=== PATIENT | female | born 1975 | race Caucasian/White ===

== ENCOUNTER 2018-08-20 15:29 | Emergency (ER) | payer SELFPAY ==
[2018-08-20 17:25] VITALS: BP 123/92
--- NOTE | 2018-08-20 17:59 | ER Document Report ---
ED Medical Screen (RME) - General Chief Complaint: Dizziness Stated Complaint: COUGH, LIGHTHEADED Time Seen by Provider: 08/20/18 17:01 Mode of Arrival: Ambulatory Information source: Patient Cannot obtain history due to: Dementia - HPI Onset: Other - 43-year-old otherwise healthy female that presents for evaluation of a cough as well as sinus pressure over the last 3 weeks. She notes that she is a daily cigarette smoker but has no other known medical problems. She denies any fevers or chills, does endorse fullness in the forehead as well as the face. Presented because she has been using some DayQuil to try and "power through it" - Related Data Allergies/Adverse Reactions: No Known Allergies Allergy (Verified 08/20/18 15:31) Past Medical History - General Information source: Patient - Social History Chew tobacco use (# tins/day): No Frequency of alcohol use: Social Drug Abuse: None Renal/ Medical History: Denies: Hx Peritoneal Dialysis Review of Systems - Review of Systems -: Yes All other systems reviewed and negative Physical Exam - Vital signs Vitals: Temp Pulse Resp BP Pulse Ox 98.6 F 94 14 112/72 99 08/20/18 15:34 08/20/18 15:34 08/20/18 15:34 08/20/18 15:34 08/20/18 15:34 Interpretation: Normal - General General appearance: Appears well, Alert - HEENT Head: Normocephalic, Atraumatic Eyes: Normal Pupils: PERRL - Respiratory Respiratory status: No respiratory distress Chest status: Nontender Breath sounds: Normal Chest palpation: Normal - Cardiovascular Rhythm: Regular Heart sounds: Normal auscultation Murmur: No - Abdominal Inspection: Normal Distension: No distension Bowel sounds: Normal Tenderness: Nontender Organomegaly: No organomegaly - Back Back: Normal, Nontender - Extremities General upper extremity: Normal inspection, Nontender, Normal color, Normal ROM, Normal temperature General lower extremity: Normal inspection, Nontender, Normal color, Normal ROM, Normal temperature, Normal weight bearing. No: Robina's sign - Neurological Neuro grossly intact: Yes Cognition: Normal Orientation: AAOx4 Clair Coma Scale Eye Opening: Spontaneous Fowler Coma Scale Verbal: Oriented Clair Coma Scale Motor: Obeys Commands Fowler Coma Scale Total: 15 Speech: Normal Motor strength normal: LUE, RUE, LLE, RLE Sensory: Normal - Psychological Associated symptoms: Normal affect, Normal mood - Skin Skin Temperature: Warm Skin Moisture: Dry Skin Color: Normal Course - Re-evaluation Re-evalutation: 43-year-old female presents with signs and symptoms suggestive of sinusitis. On examination she is well-appearing overall her lungs are very clear. She is tender to percussion in the face over the maxillary and frontal sinuses. She does not demonstrate any other symptoms suggestive more serious underlying process at this time such as pneumonia, asthma, COPD. We will plan for symptomatic treatment as she has had symptoms greater than 2 weeks she does qualify for presumed treatment of sinusitis for an underlying bacterial cause we will treat with an antibiotic did discuss with her that this is unlikely to improve her symptoms. She was also instructed to utilize anti-inflammatories. - Vital Signs Vital signs: Temp Pulse Resp BP Pulse Ox 98.3 F 99 18 123/92 H 96 08/20/18 17:24 08/20/18 17:24 08/20/18 17:24 08/20/18 17:24 08/20/18 17:24 Doctor's Discharge - Discharge Clinical Impression: Cough Sinusitis Qualifiers: Sinusitis location: unspecified location Chronicity: unspecified Qualified Code(s): J32.9 - Chronic sinusitis, unspecified Condition: Good Disposition: HOME, SELF-CARE Instructions: Sinusitis ([facility]) Additional Instructions: Your seen today in the emergency department for your sinus infection. You Had evaluation including a physical exam. You will be given an antibiotic for your sinusitis. You have been given a cough medicine to try and help with this as well. You should use decongestants such as Sudafed to try and help as well as nasal sprays. Return for any worsening fevers, chills, or other symptoms. Otherwise schedule point with your primary doctor in the coming week to help with this. You should also stop smoking today. Prescriptions: Benzonatate [Tessalon Perle 100 mg Capsule] 100 mg PO Q8HP PRN #40 cap PRN Reason: Amoxicillin 1 tab PO TID #30 tab Oxymetazoline HCl [Afrin 0.05% Nasal [place] 15 ml Bottle] 1 spray NASL ASDIR PRN #1 bottle PRN Reason: Forms: Return to Work, Smoking Cessation Education
== END 2018-08-20 18:00 | disposition home or self-care (01) ==
LOC: ER 15:29
DX: R05 Cough (principal); J32.9 Chronic sinusitis, unspecified; R42 Dizziness and giddiness; F03.90 Unspecified dementia, unspecified severity, without behavioral disturbance, psychotic disturbance, mood disturbance, and anxiety; F17.210 Nicotine dependence, cigarettes, uncomplicated
CPT/HCPCS: 99283

== ENCOUNTER 2019-01-15 02:07 | Emergency (ER) | payer OTHER ==
[2019-01-15] MEDS ORDERED: MORPHINE SULFATE 10 MG/ML INJ IM ONE (02:32)
--- NOTE | 2019-01-15 03:03 | RADIOLOGY REPORT (SQ) ---
EXAM: X-ray hand two views CLINICAL DATA: 43-year-old female status post fall with deformity to left wrist and hand TECHNICAL DATA: Two x-ray views of the left hand were performed on 01/15/2019 at 2:44 AM. A lateral view was not obtained due to significant pain. COMPARISONS: None FINDINGS: There is a comminuted minimally displaced transverse fracture through the distal left radial metaphysis with questionable intra-articular extension. There is also a mildly displaced fracture through the ulnar styloid. The radiocarpal joint is intact. There is no significant arthritis or degenerative change. Bone mineralization is normal. There are no focal lytic or sclerotic bone lesions. There is soft tissue swelling surrounding the left wrist. IMPRESSION: 1. Comminuted, minimally displaced transverse fracture through the distal left radial metaphysis with questionable intra-articular extension. 2. Mildly displaced fracture through the ulnar styloid. 3. Soft tissue swelling surrounding the left wrist.
--- NOTE | 2019-01-15 03:06 | RADIOLOGY REPORT (SQ) ---
EXAM: X-ray wrist three or more views CLINICAL DATA: 43-year-old female status post fall with left wrist pain TECHNICAL DATA: Three x-ray views of the left wrist were performed on 01/15/2019 at 2:41 AM. COMPARISONS: None FINDINGS: There is a comminuted mildly displaced transverse fracture through the distal left radial metaphysis with intra-articular extension. There is slight volar apex angulation of the fracture fragments. There is also a mildly displaced fracture through the base of the ulnar styloid. There is no evidence of arthritis or degenerative change. There are no focal lytic or sclerotic bone lesions. Bone mineralization is normal. There is diffuse soft tissue swelling surrounding the left wrist. IMPRESSION: 1. Comminuted, mildly displaced transverse fracture through the distal left radial metaphysis with intra-articular extension and slight volar apex angulation of the fracture fragments with surrounding soft tissue swelling. 2. Mildly displaced fracture through the base of the ulnar styloid.
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
[2019-01-15] MEDS ORDERED: FENTANYL CITRATE INJ/PF 100 MCG/2 ML AMPUL IM ONE (03:13)
[2019-01-15 04:48] VITALS: BP 117/81
== END 2019-01-15 04:45 | disposition home or self-care (01) ==
LOC: ER 02:07
DX: S52.592A Other fractures of lower end of left radius, initial encounter for closed fracture (principal); S52.612A Displaced fracture of left ulna styloid process, initial encounter for closed fracture; Y08.89XA Assault by other specified means, initial encounter; F17.200 Nicotine dependence, unspecified, uncomplicated
CPT/HCPCS: 99283; 96372; 73130; 73110; 29125; J3010; J2270

== ENCOUNTER 2019-04-17 14:09 | Emergency (ER) | payer OTHER ==
[2019-04-17] MEDS ORDERED: ACETAMINOPHEN 325 MG TABLET PO ONE (14:16)
[2019-04-17] MEDS ORDERED: DIPH/PERTUSS(ACELL)/TETANUS VAC/PF 0.5 ML SYR (>=10YO) IM ONE (14:16)
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
[2019-04-17 14:29] VITALS: BP 135/88
--- NOTE | 2019-04-17 14:47 | RADIOLOGY REPORT (SQ) ---
EXAM DESCRIPTION: CT HEAD WITHOUT COMPLETED DATE/TIME: 04/17/2019 2:38 pm REASON FOR STUDY: head injury, feels speech is off COMPARISON: None. TECHNIQUE: Axial images acquired through the brain without intravenous contrast. Images reviewed wi th bone, brain and subdural windows. Additional sagittal and coronal reconstructions were generated. Images stored on PACS. All CT scanners at this facility use dose modulation, iterative reconstruction, and/or weight based d osing when appropriate to reduce radiation dose to as low as reasonably achievable (ALARA). [facility]: Dose Right [facility]: CareDose [facility]: Dose Right [facility]: Teradose 4D [facility]: Smart Ener1 RADIATION DOSE: CT Rad equipment meets quality standard of care and radiation dose reduction techniq ues were employed. CTDIvol: 53.2 mGy. DLP: 1017 mGy-cm. mGy. LIMITATIONS: None. FINDINGS: VENTRICLES: Normal size and contour. CEREBRUM: No masses. No hemorrhage. No midline shift. No evidence for acute infarction. Normal gra y/white matter differentiation. No areas of low density in the white matter. CEREBELLUM: No masses. No hemorrhage. No alteration of density. No evidence for acute infarction. EXTRAAXIAL SPACES: No fluid collections. No masses. ORBITS AND GLOBE: No intra- or extraconal masses. Normal contour of globe without masses. CALVARIUM: No fracture. PARANASAL SINUSES: No fluid or mucosal thickening. SOFT TISSUES: No mass or hematoma. OTHER: No other significant finding. IMPRESSION: NORMAL BRAIN CT WITHOUT CONTRAST. EVIDENCE OF ACUTE STROKE: NO. COMMENT: Quality ID # [id number]: Final reports with documentation of one or more dose reduction techniques (e.g., Automated exposure control, adjustment of the mA and/or kV according to patient size, use of iterative reconstruction technique) TECHNICAL DOCUMENTATION: JOB ID: [id number] [employer]- All Rights Reserved Reading location - IP/workstation name: [email or web address]
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
== END 2019-04-17 15:05 | disposition home or self-care (01) ==
LOC: ER 14:09
DX: Z23 Encounter for immunization (principal); S09.90XA Unspecified injury of head, initial encounter; R51 Headache; W22.8XXA Striking against or struck by other objects, initial encounter; F17.200 Nicotine dependence, unspecified, uncomplicated
CPT/HCPCS: 70450; 90471; 90715; 99283

== ENCOUNTER 2019-09-19 15:27 | Emergency (ER) | payer SELFPAY ==
[2019-09-19 15:45] VITALS: BP 123/82
--- NOTE | 2019-09-19 16:01 | ER Document Report ---
ED Medical Screen (RME) - General Chief Complaint: Rash Stated Complaint: POSSIBLE RASH Time Seen by Provider: 09/19/19 15:56 Notes: Patient is a 44-year-old female who presents emergency department with a chief complaint of a rash or possible abscess to her anal area. Patient states that she was told that she could possibly have hemorrhoids and she has been using Preparation H. She is not quite sure if the drainage coming from the area is an abscess or the cream. States that she has been scratching the area. Exam: Deferred, as the patient is in triage. I have greeted and performed a rapid initial assessment of this patient. A com prehensive ED assessment and evaluation of the patient, analysis of test results and completion of medical decision making process will be conducted by an additional ED providers. TRAVEL OUTSIDE OF THE [place] IN LAST 30 DAYS: No - Related Data Allergies/Adverse Reactions: No Known Allergies Allergy (Verified 09/19/19 15:55) Past Medical History Renal/ Medical History: Denies: Hx Peritoneal Dialysis Psychiatric Medical History: Reports: Hx Depression Physical Exam - Vital signs Vitals: Temp Pulse Resp BP Pulse Ox 98.2 F 84 18 123/82 100 09/19/19 15:44 09/19/19 15:44 09/19/19 15:44 09/19/19 15:44 09/19/19 15:44 Course - Vital Signs Vital signs: Temp Pulse Resp BP Pulse Ox 98.2 F 84 18 123/82 100 09/19/19 15:44 09/19/19 15:44 09/19/19 15:44 09/19/19 15:44 09/19/19 15:44
== END 2019-09-19 17:10 | disposition left against medical advice (07) ==
LOC: ER 15:27
DX: R21 Rash and other nonspecific skin eruption (principal)
CPT/HCPCS: 99281

== ENCOUNTER 2019-12-20 14:10 | Emergency (ER) | payer SELFPAY ==
--- NOTE | 2019-12-20 14:26 | ER Document Report ---
ED Medical Screen (RME) - General Chief Complaint: Hand Pain Stated Complaint: LEFT HAND PAIN Time Seen by Provider: 12/20/19 14:25 Mode of Arrival: Ambulatory Information source: Patient Notes: 44-year-old female presented to ED for complaint of being stuck by a needle while at work. She does cleaning of houses self-employed when she was cleaning under the bed she got poked by a needle under the mattress. She does not have any insurance. She states she smokes 1/2 pack a day drinks socially does not have any past medical history. I have greeted and performed a rapid initial assessment of this patient. A comprehensive ED assessment and evaluation of the patient, analysis of test results and completion of medical decision making process will be conducted by an additional ED providers. TRAVEL OUTSIDE OF THE [place] IN LAST 30 DAYS: No - Related Data Allergies/Adverse Reactions: No Known Allergies Allergy (Verified 12/20/19 14:14) Past Medical History Renal/ Medical History: Denies: Hx Peritoneal Dialysis Psychiatric Medical History: Reports: Hx Depression
[2019-12-20 15:10] LABS: ABSOLUTE BASOPHILS # (AUTO) 0.1 10^3/uL (0.0-0.2); ABSOLUTE EOSINOPHILS # (AUTO) 0.1 10^3/uL (0.0-0.6); ABSOLUTE LYMPHOCYTES (AUTO) 2.2 10^3/uL (0.5-4.7); ABSOLUTE MONOCYTES (AUTO) 0.3 10^3/uL (0.1-1.4); ABSOLUTE NEUT (AUTO) 3.4 10^3/uL (1.7-8.2); BASOPHILS % (AUTO) 0.8 % (0-2); EOSINOPHILS % (AUTO) 1.5 % (0-6); HEMATOCRIT 37.7 % (36.0-47.0); HEMOGLOBIN 13.5 g/dL (12.0-15.5); LYMPHOCYTES % (AUTO) 36.1 % (13-45); MEAN CORPUSCULAR HEMOGLOBIN 40.4 pg (27.0-33.4); MEAN CORPUSCULAR HGB CONC 35.8 g/dL (32.0-36.0); MONOCYTES % (AUTO) 5.4 % (3-13); PLATELET COUNT 197 10^3/uL (150-450); RED BLOOD COUNT 3.35 10^6/uL (3.72-5.28); RED CELL DISTRIBUTION WIDTH 11.8 % (11.5-14.0); SEGMENTED NEUTROPHILS % (AUTO) 56.2 % (42-78); TOTAL CELLS COUNTED % (AUTO) 100 %; WHITE BLOOD COUNT 6.1 10^3/uL (4.0-10.5)
[2019-12-20 15:39] LABS: ALBUMIN 4.5 g/dL (3.5-5.0); ALKALINE PHOSPHATASE 101 U/L (38-126); ANION GAP 9 (5-19); ASPARTATE AMINO TRANSFERASE 40 U/L (14-36); BILIRUBIN,TOTAL 0.7 mg/dL (0.2-1.3); BLOOD UREA NITROGEN 12 mg/dL (7-20); CALCIUM 9.6 mg/dL (8.4-10.2); CARBON DIOXIDE 23 mmol/L (22-30); CHLORIDE 104 mmol/L (98-107); GLUCOSE 91 mg/dL (75-110); POTASSIUM 4.2 mmol/L (3.6-5.0); TOTAL PROTEIN 8.4 g/dL (6.3-8.2)
[2019-12-20 15:44] LABS: ANISOCYTOSIS SLIGHT; PLATELET COMMENT ADEQUATE
[2019-12-20 15:45] LABS: MEAN CORPUSCULAR VOLUME 113 fl (80-97)
--- NOTE | 2019-12-20 15:49 | ER Document Report ---
ED Body Fluid Exposure - General Chief Complaint: Needle Stick Exposure Stated Complaint: LEFT HAND PAIN Time Seen by Provider: 12/20/19 14:25 Mode of Arrival: Ambulatory Notes: CHIEF COMPLAINT: Needlestick injury HPI: 44-year-old female who is otherwise healthy presenting for needlestick injury to the left third finger. Patient states they were cleaning the rental house and she went to took the sheets and onto the bed and something stabbed her in the tip of the finger. They lifted the mattress and saw a small syringe with an orange. States the syringe itself was not more than 3 inches or 4 inches long, the needle itself was perhaps half an inch. Patient was concerned about the stick injury so decided to come into the hospital for evaluation. ROS: See HPI - all other systems were reviewed and are otherwise negative Constitutional: no fever Integumentary: no rash, positive bruising left third finger Allergy: no hives Musculoskeletal: Positive extremity pain or swelling Neurological: no numbness/tingling, no weakness MEDICATIONS: I agree with the patient medications as charted by the RN. ALLERGIES: I agree with the allergies as charted by the RN. PAST MEDICAL HISTORY/PAST SURGICAL HISTORY: Reviewed and agree as charted by RN. SOCIAL HISTORY: Reviewed and agree as charted by RN. FAMILY HISTORY: No significant familial comorbid conditions directly related to patient complaint EXAM: Reviewed vital signs as charted by RN. CONSTITUTIONAL: Alert and oriented and responds appropriately to questions. Well-appearing; well-nourished HEAD: Normocephalic; atraumatic EYES: Conjunctivae clear, sclerae non-icteric ENT: normal nose; no rhinorrhea; moist mucous membranes NECK: Supple without meningismus CARD: RRR; no murmurs, no clicks, no rubs, no gallops; symmetric distal pulses RESP: Normal chest excursion without splinting or tachypnea; breath sounds clear and equal bilaterally; no wheezes, no rhonchi, no rales, pulse oximetry 98% on room air not hypoxic ABD/GI: Normal bowel sounds; non-distended; soft, non-tender, no rebound, no guarding; no palpable organomegaly or masses. BACK: The back appears normal and is non-tender to palpation, there is no CVA tenderness EXT: Normal ROM in all joints; small bruised area possible puncture wound to the tip of the left third finger. No nail involvement. No erythema. No visible or palpable foreign body; no cyanosis, no effusions, no edema SKIN: Normal color for age and race; warm; dry; good turgor; no acute lesions noted NEURO: Moves all extremities equally; Motor and sensory function intact PSYCH: The patient's mood and manner are anxious. Grooming and personal hygiene are appropriate. MDM: 44-year-old female with a needlestick injury several hours ago. Initial screening labs drawn through triage process. Awaiting HIV and hepatitis screening which patient can follow-up through the follow-up nurse tomorrow. She is up-to-date on her tetanus vaccination. Discussed with Dr. Marshall, Attending. Given the likely gauge of the needle as it sounds like a diabetic needle unlikely that patient would get HIV from this. No indication that at this time to start patient on antiviral medication per attending. Discussed at length with the patient who is in agreement with this. TRAVEL OUTSIDE OF THE [place] IN LAST 30 DAYS: No - Related Data Allergies/Adverse Reactions: No Known Allergies Allergy (Verified 12/20/19 14:14) Past Medical History - General Information source: Patient - Social History Smoking Status: Current Every Day Smoker Chew tobacco use (# tins/day): No Frequency of alcohol use: Social Drug Abuse: None Family History: Reviewed & Not Pertinent Patient has homicidal ideation: No Renal/ Medical History: Denies: Hx Peritoneal Dialysis Psychiatric Medical History: Reports: Hx Depression Physical Exam - Vital signs Vitals: Temp 98.2 F 12/20/19 14:14 Course - Vital Signs Vital signs: Temp Pulse Resp BP Pulse Ox 98.2 F 12/20/19 14:14 - Laboratory Result Diagrams: 12/20/19 14:57 12/20/19 14:57 Discharge - Discharge Clinical Impression: Needlestick injury of finger Condition: Stable Disposition: HOME, SELF-CARE Additional Instructions: Follow-up with your lab work results tomorrow by phone with the follow-up nurse at the hospital. You may call back the main number and ask for the follow-up nurse to obtain your results. Follow-up otherwise with a primary care provider through the health department for retesting in 1 to 2 months if all of your tests today are negative. Referrals: GAYLE BARNES MD [ACTIVE STAFF] - Follow up as needed
[2019-12-20 16:37] VITALS: BP 131/91
[2019-12-21 12:37] LABS: PATH REVIEW PATHOLOGIST REVIEWED
[2019-12-22 07:38] LABS: HEPATITS B SURFACE ANTIGEN Negative (Negative)
[2019-12-22 09:11] LABS: HEPATITIS C VIRUS ANTIBODY >11.0 s/co ratio (0.0-0.9)
== END 2019-12-20 16:50 | disposition home or self-care (01) ==
LOC: ER 14:10
DX: S61.432A Puncture wound without foreign body of left hand, initial encounter (principal); W46.0XXA Contact with hypodermic needle, initial encounter; Y93.E9 Activity, other interior property and clothing maintenance; Y99.0 Civilian activity done for income or pay; F17.200 Nicotine dependence, unspecified, uncomplicated
CPT/HCPCS: 36415; 80053; 80074; 85025; 86701; 99283

== ENCOUNTER 2020-09-15 00:29 | Emergency (ER) | payer SELFPAY ==
[2020-09-15] MEDS ORDERED: LORAZEPAM 1 MG TABLET PO ONE (01:01)
--- NOTE | 2020-09-15 01:18 | ER Document Report ---
ED Psych Disorder / Suicide <THEO GOMEZ - Last Filed: 09/15/20 12:24> <CORIE AHUMADA - Last Filed: 09/15/20 12:33> - General Mode of Arrival: Medic Information source: Patient, Emergency Med Personnel TRAVEL OUTSIDE OF THE [place] IN LAST 30 DAYS: No - HPI Patient complains to provider of: Overdose, Suicidal ideation. No: Agitated, Bizarre behavior, Hallucinating, Homicidal ideation, Homicidal plan, Homicidal attempt Onset: Just prior to arrival Onset was: Sudden Quality of pain: No pain Severity: None Pain Level: Denies Suicide Risk Factors: Depressed, Lack of social support, Prior suicide attempt, Substance abuse. No: Frightened friends/family, Hallucinations, Left letter of attempt, Lethal weapons in home, Organized plan, Panic disorder Overdose of: Alcohol, Other <EDOUARD ROYAL JR - Last Filed: 09/18/20 14:59> - General Chief Complaint: Psych Problem Stated Complaint: PSYCH Time Seen by Provider: 09/15/20 00:48 Primary Care Provider: [facility] [Outside] - Follow up as needed [facility] [Outside] - Follow up as needed [facility] [Outside] - Follow up as needed Notes: 45-year-old female arrived by EMS after she wanted to kill herself tonyvan. This was after doing 2 lines of cocaine and drinking a lot of Budweiser beer. 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 She has been 7 years clean" according the patient. Patient denies ever being here at this facility in the past. Patient denies any thoughts at homicide. She admits she has been in psychiatric facilities multiple times in the past. She denies any fever chills cough cold c ephalgia nuchal rigidity skin lesions dysuria trauma abuse diarrhea constipation. Patient has no explicit plans expressed to me for suicide. (EDOUARD ROYAL JR) - Related Data Allergies/Adverse Reactions: No Known Allergies Allergy (Verified 12/20/19 14:14) Past Medical History - General Information source: Patient - Social History Smoking Status: Current Every Day Smoker Cigarette use (# per day): Yes Chew tobacco use (# tins/day): No Smoking Education Provided: Yes Frequency of alcohol use: Heavy - Budweiser beer Drug Abuse: None Lives with: Family Family History: Reviewed & Not Pertinent Patient has suicidal ideation: No Patient has homicidal ideation: No Renal/ Medical History: Denies: Hx Peritoneal Dialysis Psychiatric Medical History: Reports: Hx Depression <LELEEDOUARD JR - Last Filed: 09/18/20 14:59> Review of Systems - Review of Systems Constitutional: No symptoms reported EENT: No symptoms reported Cardiovascular: No symptoms reported Respiratory: No symptoms reported Gastrointestinal: No symptoms reported Genitourinary: No symptoms reported Female Genitourinary: No symptoms reported Musculoskeletal: No symptoms reported Skin: No symptoms reported Hematologic/Lymphatic: No symptoms reported Neurological/Psychological: No symptoms reported, See HPI, Depression, Anxiety, Suicidal ideation. denies: Confusion, Dementia, Hallucinations, Homicidal ideation, Weakness, Gait changes, Loss of power, Paralysis, Seizure, Lost consciousness, Headaches, Speech impairment -: Yes All other systems reviewed and negative <LELEEDOUARD Cardenas JR - Last Filed: 09/18/20 14:59> Physical Exam - Vital signs Interpretation: Normal - General General appearance: Appears well, Alert - HEENT Head: Normocephalic, Atraumatic Eyes: Normal Pupils: PERRL - Respiratory Respiratory status: No respiratory distress Chest status: Nontender Breath sounds: Normal Chest palpation: Normal - Cardiovascular Rhythm: Regular Heart sounds: Normal auscultation Murmur: No - Abdominal Inspection: Normal Distension: No distension Bowel sounds: Normal Tenderness: Nontender Organomegaly: No organomegaly - Rectal Hemorrhoids: Other - Deferred - Genitourinary Bimanuel exam: Other - Deferred - Back Back: Normal, Nontender - Extremities General upper extremity: Normal inspection, Nontender, Normal color, Normal ROM, Normal temperature General lower extremity: Normal inspection, Nontender, Normal color, Normal ROM, Normal temperature, Normal weight bearing. No: Robina's sign - Neurological Neuro grossly intact: Yes Cognition: Normal Orientation: AAOx4 Clair Coma Scale Eye Opening: Spontaneous Elliott Coma Scale Verbal: Oriented Clair Coma Scale Motor: Obeys Commands Clair Coma Scale Total: 15 Speech: Normal Motor strength normal: LUE, RUE, LLE, RLE Sensory: Normal - Psychological Associated symptoms: Normal affect, Normal mood - Skin Skin Temperature: Warm Skin Moisture: Dry Skin Color: Normal <EDOUARD ROYAL JR - Last Filed: 09/18/20 14:59> - Vital signs Vitals: Temp Pulse Resp BP Pulse Ox 97.6 F 96 17 110/77 98 09/15/20 02:04 09/15/20 02:04 09/15/20 02:04 09/15/20 02:04 09/15/20 02:04 Course - Laboratory Results Result Diagrams: 09/15/20 01:17 09/15/20 01:17 <THEO GOMEZ - Last Filed: 09/15/20 12:24> - Laboratory Results Result Diagrams: 09/15/20 01:17 09/15/20 01:17 <CORIE AHUMADA - Last Filed: 09/15/20 12:33> - Laboratory Results Result Diagrams: 09/15/20 01:17 09/15/20 01:17 Critical Laboratory Results Reviewed: Yes Attending or Supervising Physician who Reviewed Labs: EDOUARD ROYAL JR - Radiology Results Critical Radiology Results Reviewed: No Critical Results Attending or Supervising Physician who Reviewed Radiology: EDOUARD ROYAL JR - EKG Interpretation by Ne EKG shows normal: Sinus rhythm Rate: Normal Rhythm: NSR - no ST elevation and no ST depression;93 bpm and I read this EKG with no T wave changes <EDOUARD ROYAL JR - Last Filed: 09/18/20 14:59> - Vital Signs Vital signs: Temp Pulse Resp BP Pulse Ox 97.5 F 106 H 16 103/69 100 09/15/20 13:00 09/15/20 13:00 09/15/20 13:00 09/15/20 13:00 09/15/20 13:00 - Laboratory Results Laboratory Results Interpreted: 09/15/20 09/15/20 01:17 01:17 WBC 15.9 H MCV 110 H MCH 37.6 H Absolute Neuts (auto) 12.1 H Carbon Dioxide 19 L Glucose 114 H AST 57 H ALT 44 H Total Protein 8.6 H Salicylates < 1.0 L Acetaminophen < 10 L Discharge <THEO GOMEZ - Last Filed: 09/15/20 12:24> <CORIE AHUMADA - Last Filed: 09/15/20 12:33> <EDOUARD ROYAL JR - Last Filed: 09/18/20 14:59> - Discharge Clinical Impression: Cocaine abuse, Alcohol abuse, Suicidal ideation Depression Qualifiers: Depression Type: unspecified Qualified Code(s): F32.9 - Major depressive disorder, single episode, unspecified Condition: Stable Disposition: HOME, SELF-CARE Additional Instructions: You have been evaluated by both medical and behavioral health teams for passive SI and substance use. You have been deemed appropriate for discharge. While in the emergency department you received the following services/or had access to: Medical screening and assessment, nursing services, dietary services, pharmacological services, one-on-one counseling and/or psychotherapy, environmental services, and continuous observation by a patient safety lamp keeper. Altered Mental Status (due to cocaine use and alcohol use) An altered mental status is a change in the normal functioning of the brain. This alteration of function can range from minor decreased brain function with some forgetfulness and confusion to complete loss of consciousness and coma. There are many possible causes of an altered mental status and include brain injuries such as trauma or strokes, problems with oxygen supply to the brain, fever and infections of the brain and/or elsewhere in the body, metabolic abnormalities such as low or high blood sugar, overdoses or excessive medication ingestion, and mental and psychiatric illnesses. Sometimes the altered mental status resolves and a definite cause is not determined. If a cause for your altered mental status was found, it has likely been corrected. Your evaluation has not shown any condition that requires that you be admitted to the hospital. It is believed that you are safe to leave and return to your home. If you have a return of your symptoms, you should return for re-evaluation. Suicidal Ideation Suicidal ideation is a common medical term for thoughts about suicide, w hich may be as detailed as a formulated plan, without the suicidal act itself. Although most people who undergo suicidal ideation do not commit suicide, some go on to make suicide attempts. The range of suicidal ideation varies greatly from fleeting to detailed planning, role playing, and unsuccessful attempts. While thoughts about suicide are common, most people do not carry out serious actions to commit suicide. However, based upon your evaluation and discussion with you, we believe you are not currently at risk to act upon your thoughts of suicide. Therefore, you will be discharged home. ACUTE ALCOHOL INTOXICATION and ALCOHOL ABUSE: Your evaluation revealed very high levels of alcohol. You can from drinking a large amount of alcohol rapidly! Further, there's the risk of falls, traffic accidents, and fights. A high portion (about 50 percent) of the serious injuries seen in hospital emergency rooms are caused by alcohol. Alcohol overdosage is usually due to an underlying emotional or psychiatric problem. You may benefit from counselling. If "binge" drinking is an ongoing problem for you, or if you drink ANY AMOUNT of alcohol EVERY day, you most likely have a tendency to alcoholism. You should avoid alcohol totally. We can refer you for treatment. Persons with alcohol problems are often also prone to other addictions -- you should discuss any use of medications or drugs with the doctor. You should be watched at home for the next several hours by someone who has not been drinking. Get extra fluids for the next 24 hours. Call the doctor if there is repeated vomiting, increasing headache, decreasing level of alertness, or any other worsening. COCAINE ABUSE: Cocaine causes many dangerous medical problems. Problems can occur even with "usual" amounts. Cocaine affects judgement, creating a sense of invulnerability. Cocaine users often make bad decisions that seem "great" at the time. Most cocaine users eventually will be hurt by bad job performance, damaged personal relations, crime, and unsafe sexual practices. Toxic effects of cocaine can include seizures, hallucinations, delusions, high blood pressure, heart damage, or sudden . There's always the risk of a "bad batch." But heart attacks, brain hemorrhages, or cardiac arrest can occur unpredictably even with "normal" use. Injection of cocaine is risky for abscesses, endocarditis (heart infection), pneumonia, and AIDS. Withdrawal from cocaine often causes anxiety and drug cravings. Some users become paranoid and psychotic. Many treatment programs are available, but you must make the decision to quit. Medication can be prescribed to control the symptoms of cocaine toxicity (beta blockers or benzodiazepines). Withdrawal symptoms may require tranquilizers. Follow up care: You are currently not involved in outpatient services, but are highly recommended to begin outpatient treatment. You are also recommended to follow up with [facility] and have been given information on substance use and detox resources. You are recommended to abstain from illegal substance use. Your boyfriend, Tu, agrees to be part of your plan of care and was informed to call mobile crisis or return to the ED if he feels necessary for you. At this time, we are trying to get in touch with your mother to pick you up, but have been unable to get through to her. You have been given a community outpatient referral list to include phone numbers for [facility] and [facility]. If you experience worsening or a significant change in your symptoms, notify the physician immediately, utilize mobile crisis, or return to the Emergency Department at any time for re-evaluation. Dr. King was consulted to care management of this patient; attending physicians in agreement with recommendations and disposition. Referrals: [facility] [Outside] - Follow up as needed [facility] [Outside] - Follow up as needed [facility] [Outside] - Follow up as needed
[2020-09-15 01:25] LABS: ABSOLUTE BASOPHILS # (AUTO) 0.1 10^3/uL (0.0-0.2); ABSOLUTE EOSINOPHILS # (AUTO) 0.2 10^3/uL (0.0-0.6); ABSOLUTE LYMPHOCYTES (AUTO) 2.8 10^3/uL (0.5-4.7); ABSOLUTE MONOCYTES (AUTO) 0.7 10^3/uL (0.1-1.4); ABSOLUTE NEUT (AUTO) 12.1 10^3/uL (1.7-8.2); BASOPHILS % (AUTO) 0.5 % (0-2); EOSINOPHILS % (AUTO) 1.2 % (0-6); HEMATOCRIT 42.4 % (36.0-47.0); HEMOGLOBIN 14.5 g/dL (12.0-15.5); LYMPHOCYTES % (AUTO) 17.7 % (13-45); MEAN CORPUSCULAR HEMOGLOBIN 37.6 pg (27.0-33.4); MEAN CORPUSCULAR HGB CONC 34.1 g/dL (32.0-36.0); MONOCYTES % (AUTO) 4.2 % (3-13); RED BLOOD COUNT 3.85 10^6/uL (3.72-5.28); SEGMENTED NEUTROPHILS % (AUTO) 76.4 % (42-78); TOTAL CELLS COUNTED % (AUTO) 100 %; WHITE BLOOD COUNT 15.9 10^3/uL (4.0-10.5)
[2020-09-15 01:39] LABS: MEAN CORPUSCULAR VOLUME 110 fl (80-97); PLATELET COUNT 208 10^3/uL (150-450)
[2020-09-15 01:46] LABS: ACETAMINOPHEN < 10 ug/mL (10-30); ALBUMIN 4.6 g/dL (3.5-5.0); ALCOHOL 223 mg/dL (NONE DETECTED); ALKALINE PHOSPHATASE 101 U/L (38-126); ANION GAP 15 (5-19); ASPARTATE AMINO TRANSFERASE 57 U/L (14-36); BILIRUBIN,DIRECT 0.3 mg/dL (0.0-0.4); BILIRUBIN,TOTAL 0.4 mg/dL (0.2-1.3); BLOOD UREA NITROGEN 8 mg/dL (7-20); CALCIUM 9.2 mg/dL (8.4-10.2); CARBON DIOXIDE 19 mmol/L (22-30); CHLORIDE 105 mmol/L (98-107); GLUCOSE 114 mg/dL (75-110); POTASSIUM 4.1 mmol/L (3.6-5.0); SALICYLATE < 1.0 mg/dL (2.0-20.0); TOTAL PROTEIN 8.6 g/dL (6.3-8.2)
[2020-09-15 02:07] LABS: APPEARANCE,URINE CLEAR; BILIRUBIN,URINE NEGATIVE (NEGATIVE); COLOR,URINE STRAW; GLUCOSE, URINE NEGATIVE (NEGATIVE); KETONES,URINE NEGATIVE (NEGATIVE); LEUKOCYTE ESTERASE,URINE NEGATIVE (NEGATIVE); NITRITE,URINE NEGATIVE (NEGATIVE); PROTEIN,URINE NEGATIVE (NEGATIVE); URINE SPECIFIC GRAVITY 1.002; UROBILINOGEN,URINE NEGATIVE mg/dL (<2.0)
[2020-09-15 02:21] LABS: URINE AMPHETAMINES SCREEN NEGATIVE; URINE BARBITURATES SCREEN NEGATIVE; URINE BENZODIAZEPINES SCREEN NEGATIVE; URINE MARIJUANA (THC) SCREEN NEGATIVE; URINE METHADONE SCREEN NEGATIVE; URINE PHENCYCLIDINE SCREEN NEGATIVE
[2020-09-15 02:22] LABS: URINE COCAINE SCREEN UNCONFIRMED POSITIVE
--- NOTE | 2020-09-15 09:54 | EKG REPORT ---
SEVERITY:- ABNORMAL ECG - SINUS RHYTHM PROBABLE LEFT ATRIAL ABNORMALITY : Confirmed by: Rafi Wade MD 15-Sep-2020 09:52:20
--- NOTE | 2020-09-15 12:36 | ER Document Report ---
Doctor's Note Notes: 09/15/20 12:36 PHYSICAL EXAMINATION: GENERAL: Appears well, healthy, well-nourished, no acute distress. LUNGS: Equal breath sounds bilaterally and clear to auscultation. No wheezes rales or rhonchi. CARDIOVASCULAR: S1-S2, regular rate, regular rhythm. Radial pulses 2+, normal. ABDOMEN: Normoactive bowel sounds. Soft, nontender, no guarding, no rebound tenderness, and no masses palpated. PSYCH: Normal mood, normal affect. Patient denies any suicidal or homicidal ideation. She is able to converse with me well. Mental health has evaluated the patient patient is stable for discharge. Labs reviewed. Follow-up precautions were given. Verbal discharge instructions were given to the patient. They verbalized understanding. They are stable for discharge.
[2020-09-15 13:04] VITALS: BP 103/69
[2020-09-15 13:30] LABS: PATH REVIEW PATHOLOGIST REVIEWED
--- NOTE | 2020-09-15 15:17 | PSYCHOLOGICAL NOTE ---
Psych Note - Psych Note Date seen by psych provider: 09/15/20 Time seen by psych provider: 10:32 Psych Note: Reason for Consult: suicidal ideations [id number] Consent Permissions: antony Mae, ; mother, Kami, Patient is a 45 year old female who presented to the [facility] ED yesterday via EMS. She denies suicidal ideation, plan, and intent. She reports yesterday she was depressed and having bad thoughts after using cocaine and alcohol. She reports she does not use cocaine often, maybe 1-2 times a month. She states she does not buy it, but if someone around her has it, she will use. Patient reports drinking beer about 2-3 times a week and will have 7-8 beers, but states she will also go a few weeks without drinking any alcohol. Patient states she was feeling depressed after using substances and could not call 9-11 with her t ablet and she messaged a friend to call for her. Patient reports history of Depression and Bipolar, however states since she moved to [place] (4 years ago), she has not had treatment. Patient reports no history of suicide attempts, but has been to a psychiatric facility two times when she was younger and once when she was 19. Patient states she is interested in [facility], but that she needs think about it. She has been to a rehab facility in [place] for a year when she used to live there (over 4 years ago). She provides verbal consent to call mother to inquire about picking her up, but requests to not discuss substance use and provides verbal consent to call Tu hardy. Collateral: [id number] Called [email or web address] He reports him and patient do live together. He denies safety concerns for patient and denies patient being suicidal. States he will be part of discharge plan of care, however does not have a car to pick her up. He was informed of mobile crisis and was informed she was given resources for substance use and mental health outpatient facilities in the area as well as [facility] center and he confirmed understanding. Confirms he will be home when patient arrives today after discharge. Patient was alert and oriented to self, person, place, time and situation. Mood was euthymic with congruent affect. She denies current suicidal and homicidal ideation, plan, and intent. Patient did not appear to be responding to internal stimuli as evidenced by fair eye contact and answering questions appropriately when addressed. Thought processes are linear and organized. Conversational speech was within normal limits for rate, tone and prosody. Intellectual abilities are estimated to be average. Insight is far as evidenced by knowing she made SI while under the influence and judgment and impulse control were poor as evidenced by polysubstance use and not seeking treatment in over 4 years. Patient engages appropriately. She demonstrates future forward goal oriented thinking as she inquires about [facility] and makes plans to go home to look into resources. Clinical Presentation: polysubstance use; passive SI, denies plan and intent IVC Criteria per [facility] 122C Dangerous to others Within the relevant past the individual No has inflicted or attempted to inflict or threatened to inflict serious bodily harm on another AND No that there is a reasonable probability that this conduct will be repeated. OR No has acted in such a way as to create a substantial risk of serious bodily harm to another AND No that there is a reasonable probability that this conduct will be repeated. OR No has engaged in extreme destruction of property AND NO that there is a reasonable probability that this conduct will be repeated. Previous episodes of dangerousness to others, when applicable, may be considered when determining reasonable probability of future dangerous conduct. Clear, cogent, and convincing evidence that an individual has committed a homicide in the relevant past is prima facie evidence of dangerousness to others. Dangerous to self Within the relevant past the individual has done any of the following: acted in such a way as to show ALL of the following: No The individual would be unable without care, supervision, and the continued assistance of others not otherwise available, to exercise self-co ntrol, judgment, and discretion in the conduct of the individual's daily responsibilities and social relations or to satisfy the individual's need for nourishment, personal or medical care, intermediate, or self-protection and safety. AND No There is a reasonable probability of the individual suffering serious physical debilitation within the near future unless adequate treatment is given. A showing of behavior that is grossly irrational, of actions that the individual is unable to control, of behavior that is grossly inappropriate to the situation, or of other evidence of severely impaired insight and judgment shall create a prima facie inference that the individual is unable to care for himself or herself. OR Yes has attempted suicide or threatened suicide Passive SI while under the influence of alcohol and cocaine AND No that there is a reasonable probability of suicide unless adequate treatment is given Denies current SI, plan, and intent and is no longer under the influence; demonstrates future forward goal oriented thinking as she is interested in getting outpatient services; no history of suicide attempts; boyfriend has no safety concerns and they live together OR No has mutilated himself or herself or attempted to mutilate himself or herself AND No that there is a reasonable probability of serious self-mutilation unless adequate treatment is given. NOTE: Previous episodes of dangerousness to self, when applicable, may be considered when determining reasonable probability of physical debilitation, suicide, or self-mutilation. Impression\plan: Patient is cleared from psychiatric services. Patient was admitted to the ED for passive SI and polysubstance use. She was positive for cocaine and alcohol level was 223. Her passive SI were made while under the influence with no voiced plan or intent. Patient was evaluated while no longer under the influence and denies suicidal ideation, plan, and intent. She demonstrates future forward goal oriented thinking as she inquires about an outpatient provider for depression medication and states she will look into [facility]. Patients mother, Kami, will be picking patient up from the ED. Patients mother did not answer the phone when behavioral health team attempted to reach her, however patient was messaging her from her tablet on [facility]. Patient resides with her boyfriend, Tu. He was made aware of her discharging and agrees to be part of her discharge plan of care. Tu will be home when patient arrives home (does not have a car to pick her up). He denies safety concerns for patient and was informed of her community resources she was provided. Patient was highly recommended to follow up with [facility] and was given detox/ substance use resource sheet. Patient was also given community resource sheet for outpatient providers in the community and those highlighted provide services to self-pay patients. Patient was also given information for mobile crisis with [facility] and [facility]. She was recommended to utilize mobile crisis or return to the ED if necessary. Dr. King was consulted to care management of this patient; attending physicians in agreement with recommendations and disposition.
== END 2020-09-15 12:55 | disposition home or self-care (01) ==
LOC: ER 00:29
DX: R45.851 Suicidal ideations (principal); F14.10 Cocaine abuse, uncomplicated; F10.10 Alcohol abuse, uncomplicated; F32.9 Major depressive disorder, single episode, unspecified; F17.210 Nicotine dependence, cigarettes, uncomplicated
CPT/HCPCS: 36415; 80053; 80307; 81001; 85025; 93005; 93010; 99285